=== PATIENT | female | born 1970 | race Caucasian/White ===

== ENCOUNTER 2017-03-09 16:35 | Outpatient (CLI) ==
[2016-03-07 16:13] VITALS: BMI 33.0
[2017-03-09 16:49] LABS: ADD URINE MICROSCOPIC YES; BILIRUBIN,URINE 2+ (NEGATIVE); KETONES,URINE 1+ (NEGATIVE); LEUKOCYTE ESTERASE ,URINE Trace (NEGATIVE); NITRITE,URINE Negative (NEGATIVE); PH,URINE 5.5 (5-9); PROTEIN,URINE 2+ (NEGATIVE); URINE, BLOOD Trace-intact (NEGATIVE)
[2017-03-09 16:58] LABS: BACTERIA,URINE 2+ (NOT PRESENT)
== END 2017-03-09 16:36 | disposition home or self-care (01) ==
LOC: LAB 16:35
PROVIDERS: ATTEND Nurse Practitioner Family
DX: R82.2 Biliuria (principal); R82.4 Acetonuria; R80.9 Proteinuria, unspecified
CPT/HCPCS: 81001; 87086

== ENCOUNTER 2017-07-03 16:11 | Outpatient (CLI) ==
[2016-03-07 16:13] VITALS: BMI 33.0
== END 2017-07-03 16:12 | disposition home or self-care (01) ==
LOC: LAB 16:11
PROVIDERS: ATTEND Nurse Practitioner Family
DX: R05 Cough (principal); R50.9 Fever, unspecified
CPT/HCPCS: 87502